=== PATIENT | female | born 1995 | race Caucasian/White ===

== ENCOUNTER 2020-04-08 13:07 | Outpatient (CLI) | payer MEDICAID, SELFPAY ==
[2020-04-08 13:35] VITALS: TEMP 36.5
[2020-04-08 13:40] VITALS: BMI 40.2
[2020-04-08 14:19] LABS: Nitrazine Paper, PH Negative
[2020-04-08 18:32] VITALS: TEMP 36.5
== END 2020-04-08 14:15 | disposition home or self-care (01) ==
LOC: OPOB 13:26 → OBGYN 13:26
PROVIDERS: Visit Provider Family Medicine
DX: O26.899 Other specified pregnancy related conditions, unspecified trimester (principal); Z3A.00 Weeks of gestation of pregnancy not specified; N89.8 Other specified noninflammatory disorders of vagina
CPT/HCPCS: 83986; 99211